=== PATIENT | male | born 1935 | race Caucasian/White ===

== ENCOUNTER 2023-03-01 14:45 | Inpatient (IN) | payer MEDICARE, OTHER ==
[~2023-03-01] VITALS: Ht 182.9 cm; Wt 91.4 kg
[2023-03-01 16:16] LABS: BASOPHILS # (AUTO) 0.05 K/uL (0.00-0.20); BASOPHILS % (AUTO) 0.4 % (0.0-5.0); EOSINOPHILS # (AUTO) 0.02 K/uL (0.00-0.70); EOSINOPHILS % (AUTO) 0.1 % (0.0-8.0); HEMATOCRIT 37.7 % (42-54); IMMATURE GRANULOCYTE ABSOLUTE 0.07 K/uL (0-1); LYMPHOCYTES # (AUTO) 0.8 K/uL (1.0-4.8); LYMPHOCYTES % (AUTO) 6.1 % (21.0-51.0); MEAN CORPUSCULAR HEMOGLOBIN 30.8 pg (27.0-33.0); MEAN CORPUSCULAR HGB CONC 34.7 g/dL (32.0-36.0); MEAN CORPUSCULAR VOLUME 88.7 fL (79-99); MONOCYTES # (AUTO) 0.9 K/uL (0.1-1.0); MONOCYTES % (AUTO) 6.7 % (3.0-13.0); NEUTROPHILS # (AUTO) 11.9 K/uL (1.8-7.7); NEUTROPHILS % (AUTO) 86.2 % (40.0-77.0); PLATELET COUNT (AUTO) 277 K/uL (130-400); RED BLOOD CELL COUNT(AUTO) 4.25 MIL/uL (4.50-6.20); RED CELL DISTRIBUTION WIDTH 12.3 % (11.0-15.5); WHITE BLOOD COUNT (AUTO) 13.8 K/uL (4.8-10.8)
[2023-03-01 16:27] LABS: CREATININE 1.7 mg/dL (0.5-1.5); POTASSIUM 4.6 mmol/L (3.5-5.1)
[2023-03-01 16:31] LABS: ALBUMIN 3.9 g/dL (3.5-5.0); BILIRUBIN,TOTAL 0.6 mg/dL (0.2-1.0); TOTAL PROTEIN, SERUM 7.9 g/dL (6.0-8.3)
[2023-03-01] MEDS ORDERED: 0.9% NACL 500ML IV.SOLN 500 ML IV ONE (17:00)
[2023-03-01] MEDS ORDERED: CEFTRIAXONE 1G VIAL IVPB ONE (18:30)
[2023-03-01] MEDS ORDERED: TAMSULOSIN HCL 0.4 MG CAP.ER.24H PO ONE (20:30)
[2023-03-01] MEDS ORDERED: POTASSIUM CHLORIDE 20MEQ/100ML 100 ML IV PRN (21:30)
[2023-03-01] MEDS: LACTATED RINGERS 1000ML 1,000 ML IV SCH (21:30)
[2023-03-01] MEDS ORDERED: KCL 20 MEQ ERTAB PO PRN (21:30)
[2023-03-01] MEDS ORDERED: MAGNESIUM 2GM PREMIX 50ML 50 ML IV PRN (21:30)
[2023-03-01] MEDS ORDERED: ACETAMINOPHEN 325 MG TAB PO PRN ×2 (21:30)
[2023-03-01] MEDS ORDERED: ONDANSETRON 4MG INJ IV PRN (21:30)
[2023-03-01] MEDS ORDERED: MORPHINE 2 MG SYG IV PRN (21:30)
[2023-03-01] MEDS ORDERED: POTASSIUM CHLORIDE 10% ELIXIR 20 MEQ/15 ML UDCUP PO PRN (21:30)
[2023-03-01] MEDS ORDERED: HYDROMORPHONE 0.5 MG SYG (0.5MG/0.5ML) IV PRN (21:30)
[2023-03-01 21:35] LABS: APPEARANCE,URINE TURBID (CLEAR); BILIRUBIN,URINE NEGATIVE (NEGATIVE); COLOR,URINE BROWN (YELLOW); GLUCOSE, URINE (UA) 150 mg/dL (NEGATIVE); KETONES,URINE 10 mg/dL (NEGATIVE); LEUKOCYTE ESTERASE ,URINE 75 Leu/uL (NEGATIVE); NITRATE,URINE NEGATIVE (NEGATIVE); OCCULT BLOOD,URINE LARGE (NEGATIVE); PH,URINE 5.5 (5.0-8.0); PROTEIN,URINE 100 mg/dL (NEGATIVE); UROBILINOGEN,URINE 0.2 mg/dL (0.2-1.0)
[2023-03-01 21:36] LABS: ADD UA MICROSCOPIC YES
[2023-03-01 21:38] LABS: BACTERIA,URINE RARE /HPF (None Seen); MUCUS,URINE RARE LPF (None Seen); RBC,URINE TNTC /HPF (0-1); SQUAMOUS EPITHELIAL CELL,UR RARE /HPF (0-2); UNCLASSIFIED CRYSTAL 7 /HPF (None Seen); WBC CLUMP FEW /HPF (0-1); YEAST,URINE BUDDING MOD /HPF (None Seen)
[2023-03-01 22:11] LABS: CREATININE,URINE RANDOM 53 mg/dL (30-135); SODIUM,URINE RANDOM 103 mmol/l (40-220)
[2023-03-02] MEDS: CEFTRIAXONE 1G VIAL IVPB SCH (03:00)
[2023-03-02 07:01] LABS: BASOPHILS # (AUTO) 0.04 K/uL (0.00-0.20); BASOPHILS % (AUTO) 0.4 % (0.0-5.0); EOSINOPHILS # (AUTO) 0.09 K/uL (0.00-0.70); EOSINOPHILS % (AUTO) 0.8 % (0.0-8.0); HEMATOCRIT 35.3 % (42-54); IMMATURE GRANULOCYTE ABSOLUTE 0.06 K/uL (0-1); LYMPHOCYTES # (AUTO) 1.1 K/uL (1.0-4.8); LYMPHOCYTES % (AUTO) 9.7 % (21.0-51.0); MEAN CORPUSCULAR HEMOGLOBIN 30.8 pg (27.0-33.0); MEAN CORPUSCULAR HGB CONC 35.1 g/dL (32.0-36.0); MEAN CORPUSCULAR VOLUME 87.8 fL (79-99); MONOCYTES # (AUTO) 1.4 K/uL (0.1-1.0); MONOCYTES % (AUTO) 12.2 % (3.0-13.0); NEUTROPHILS # (AUTO) 8.7 K/uL (1.8-7.7); NEUTROPHILS % (AUTO) 76.4 % (40.0-77.0); PLATELET COUNT (AUTO) 274 K/uL (130-400); RED BLOOD CELL COUNT(AUTO) 4.02 MIL/uL (4.50-6.20); RED CELL DISTRIBUTION WIDTH 12.4 % (11.0-15.5); WHITE BLOOD COUNT (AUTO) 11.4 K/uL (4.8-10.8)
[2023-03-02 07:10] LABS: ALBUMIN 3.4 g/dL (3.5-5.0); CREATININE 1.3 mg/dL (0.5-1.5); PHOSPHORUS 2.9 mg/dL (2.5-4.9)
[2023-03-02 07:11] LABS: BILIRUBIN,TOTAL 0.5 mg/dL (0.2-1.0); MAGNESIUM 1.9 mg/dL (1.80-2.40)
[2023-03-02 07:14] LABS: HEMOGLOBIN A1C 8.1 % (4.0-6.0)
[2023-03-02] MEDS: INSULIN HUMULIN R 100 UNIT/ML 3ML SQ SCH ×4 (07:30→21:06)
[2023-03-02 07:55] LABS: INR < 0.93 (0.85-1.15); PROTHROMBIN TIME 10.4 SEC (9.6-11.6)
[2023-03-02 07:57] LABS: PARTIAL THROMBOPLASTIN TIME 29.1 SEC (26.3-35.5)
[2023-03-02] MEDS: TAMSULOSIN HCL 0.4 MG CAP.ER.24H PO SCH (10:20)
[2023-03-02] MEDS: FAMOTIDINE 20MG VIAL IV SCH (10:20)
[2023-03-02] MEDS: LACTATED RINGERS 1000ML 1,000 ML IV SCH (11:44)
[2023-03-02] MEDS ORDERED: METO100T14 PO (12:02)
[2023-03-02] MEDS ORDERED: ATOR40TA71 PO (12:02)
[2023-03-02] MEDS ORDERED: AMLO-258 PO (12:02)
[2023-03-02 19:05] VITALS: BP 167/59; PULSE 68; RESP 18
[2023-03-02] MEDS ORDERED: BIMA12.5OS OU (22:11)
[2023-03-02] MEDS ORDERED: TIMO1DRO9 OP (22:11)
[2023-03-02 23:15] VITALS: BP 135/73; PULSE 66; RESP 18
[2023-03-03] MEDS: LACTATED RINGERS 1000ML 1,000 ML IV SCH (00:10)
[2023-03-03] MEDS: CEFTRIAXONE 1G VIAL IVPB SCH (02:09)
[2023-03-03 04:30] VITALS: BP 123/58; PULSE 62; RESP 18
[2023-03-03] MEDS: INSULIN HUMULIN R 100 UNIT/ML 3ML SQ SCH ×5 (05:54→21:22)
[2023-03-03 08:00] VITALS: BP 150/76; PULSE 67; RESP 18; O2SAT 97
[2023-03-03 09:05] LABS: BASOPHILS # (AUTO) 0.04 K/uL (0.00-0.20); BASOPHILS % (AUTO) 0.5 % (0.0-5.0); EOSINOPHILS % (AUTO) 2.3 % (0.0-8.0); HEMATOCRIT 35.9 % (42-54); IMMATURE GRANULOCYTE ABSOLUTE 0.02 K/uL (0-1); LYMPHOCYTES # (AUTO) 1.2 K/uL (1.0-4.8); MEAN CORPUSCULAR HEMOGLOBIN 31.4 pg (27.0-33.0); MEAN CORPUSCULAR HGB CONC 35.1 g/dL (32.0-36.0); MEAN CORPUSCULAR VOLUME 89.5 fL (79-99); MONOCYTES # (AUTO) 0.9 K/uL (0.1-1.0); MONOCYTES % (AUTO) 9.9 % (3.0-13.0); NEUTROPHILS # (AUTO) 6.4 K/uL (1.8-7.7); NEUTROPHILS % (AUTO) 73.1 % (40.0-77.0); PLATELET COUNT (AUTO) 252 K/uL (130-400); RED BLOOD CELL COUNT(AUTO) 4.01 MIL/uL (4.50-6.20); RED CELL DISTRIBUTION WIDTH 12.2 % (11.0-15.5); WHITE BLOOD COUNT (AUTO) 8.8 K/uL (4.8-10.8)
[2023-03-03 09:20] LABS: ALBUMIN 3.3 g/dL (3.5-5.0); BILIRUBIN,TOTAL 0.5 mg/dL (0.2-1.0); CREATININE 1.3 mg/dL (0.5-1.5); MAGNESIUM 1.8 mg/dL (1.80-2.40); POTASSIUM 3.8 mmol/L (3.5-5.1)
[2023-03-03] MEDS: TAMSULOSIN HCL 0.4 MG CAP.ER.24H PO SCH (10:52)
[2023-03-03] MEDS: FAMOTIDINE 20MG VIAL IV SCH (10:53)
[2023-03-03] MEDS ORDERED: LACTULOSE 20 GM/30 ML UDCUP PO PRN (11:30)
[2023-03-03 12:00] VITALS: BP 149/74; PULSE 67; RESP 18
[2023-03-03 16:00] VITALS: BP 135/66; PULSE 64; RESP 18
[2023-03-03 19:33] VITALS: BP 130/64; PULSE 66; RESP 20
[2023-03-03 23:32] VITALS: BP 119/74; PULSE 68; RESP 17
[2023-03-04 03:35] VITALS: BP 120/62; PULSE 63; RESP 19
[2023-03-04] MEDS: CEFTRIAXONE 1G VIAL IVPB SCH (04:12)
[2023-03-04] MEDS: INSULIN HUMULIN R 100 UNIT/ML 3ML SQ SCH ×2 (05:34→11:42)
[2023-03-04 08:00] VITALS: BP 144/76; PULSE 69; RESP 18
[2023-03-04] MEDS: TAMSULOSIN HCL 0.4 MG CAP.ER.24H PO SCH (08:27)
[2023-03-04] MEDS: FAMOTIDINE 20MG VIAL IV SCH (08:27)
[2023-03-04 12:00] VITALS: BP 149/66; PULSE 65; RESP 18
[2023-03-04] MEDS ORDERED: METF-444 PO (15:04)
== END 2023-03-04 16:20 | disposition home or self-care (01) | DRG 683 ==
LOC: EDH 14:45 → EDHIP 21:27 → 4BH 03-02 18:34
PROVIDERS: ADMIT Internal Medicine; ATTEND Internal Medicine
DX: N17.9 Acute kidney failure, unspecified (principal); N13.8 Other obstructive and reflux uropathy; N39.0 Urinary tract infection, site not specified; N18.32 Chronic kidney disease, stage 3b; E11.22 Type 2 diabetes mellitus with diabetic chronic kidney disease; I12.9 Hypertensive chronic kidney disease with stage 1 through stage 4 chronic kidney disease, or unspecified chronic kidney disease; R31.0 Gross hematuria; E11.65 Type 2 diabetes mellitus with hyperglycemia; E78.00 Pure hypercholesterolemia, unspecified; N40.1 Benign prostatic hyperplasia with lower urinary tract symptoms; Z85.46 Personal history of malignant neoplasm of prostate; Z85.51 Personal history of malignant neoplasm of bladder; Z92.3 Personal history of irradiation
CPT/HCPCS: 36415; 74176; 76705; 80053; 81001; 82550; 82570; 82948; 83036; 83690; 83735; 83935; 84100; 84300; 85025; 85610; 85730; 86850; 86900; 86901; 87040; 87077; 87088; 87186; 93005; 96365; G0378; J0696; J1815; J3475; J3490

== ENCOUNTER → 2023-08-16 | Outpatient (CLI) | payer OTHER ==
[~2023-08-16] MED LIST: AMLO-258 PO; ATOR40TA71 PO; BIMA12.5OS OU; LEVO750T68 PO; METF-444 PO; METO100T14 PO; METO50TA18 PO; SITA50TA PO; TIMO1DRO9 OP
== END | disposition home or self-care (01) ==
LOC: SHCH 13:23
PROVIDERS: ATTEND Internal Medicine Cardiovascular Disease
DX: I35.8 Other nonrheumatic aortic valve disorders (principal); I51.89 Other ill-defined heart diseases; I20.0 Unstable angina; R06.02 Shortness of breath
CPT/HCPCS: 93306

== ENCOUNTER → 2023-08-20 | Outpatient (CLI) | payer OTHER ==
[2023-08-20] MEDS: REGADENOSON 0.4 MG/5 ML PF SYG IVP ONE (13:56)
== END | disposition home or self-care (01) ==
LOC: SHCH 08:06
PROVIDERS: ATTEND Internal Medicine Cardiovascular Disease
DX: I20.0 Unstable angina (principal); R06.02 Shortness of breath; R06.00 Dyspnea, unspecified
CPT/HCPCS: 78452; 93017; J2785; A9500 ×2; 96374

== ENCOUNTER 2023-08-25 20:31 | Observation (INO) | payer OTHER ==
[~2023-08-25] VITALS: Ht 180.3 cm; Wt 90.0 kg
[~2023-08-25 20:31] MED LIST changes: -LEVO750T68 PO; -METO50TA18 PO; -SITA50TA PO
[2023-08-25 21:10] LABS: BASOPHILS # (AUTO) 0.05 K/uL (0.00-0.20); BASOPHILS % (AUTO) 0.3 % (0.0-5.0); EOSINOPHILS # (AUTO) 0.02 K/uL (0.00-0.70); EOSINOPHILS % (AUTO) 0.1 % (0.0-8.0); HEMATOCRIT 35.7 % (42-54); IMMATURE GRANULOCYTE ABSOLUTE 0.12 K/uL (0-1); LYMPHOCYTES # (AUTO) 0.6 K/uL (1.0-4.8); LYMPHOCYTES % (AUTO) 3.2 % (21.0-51.0); MEAN CORPUSCULAR HGB CONC 34.2 g/dL (32.0-36.0); MEAN CORPUSCULAR VOLUME 90.6 fL (79-99); MONOCYTES # (AUTO) 1.7 K/uL (0.1-1.0); MONOCYTES % (AUTO) 9.7 % (3.0-13.0); NEUTROPHILS # (AUTO) 15.1 K/uL (1.8-7.7); PLATELET COUNT (AUTO) 249 K/uL (130-400); RED BLOOD CELL COUNT(AUTO) 3.94 MIL/uL (4.50-6.20); RED CELL DISTRIBUTION WIDTH 12.6 % (11.0-15.5); WHITE BLOOD COUNT (AUTO) 17.6 K/uL (4.8-10.8)
[2023-08-25 21:18] LABS: RAPID GROUP A STREP negative (NEGATIVE); SARS-CoV-2, RNA, NAAT NEGATIVE SARS CoV-2 (NEGATIVE)
[2023-08-25 21:24] LABS: CREATININE 1.4 mg/dL (0.5-1.3); POTASSIUM 4.4 mmol/L (3.5-5.1)
[2023-08-25 21:27] LABS: INFLUENZA TYPE A Negative For Type A (NEGATIVE); INFLUENZA TYPE B Negative For Type B (NEGATIVE)
[2023-08-25 21:36] LABS: ALBUMIN 3.3 g/dL (3.5-5.0); BILIRUBIN,TOTAL 0.6 mg/dL (0.2-1.0); MAGNESIUM 1.8 mg/dL (1.80-2.40); THYROID STIMULATING HORMONE 1.13 uIU/mL (0.36-3.74)
[2023-08-25 21:51] LABS: APPEARANCE,URINE TURBID (CLEAR); BILIRUBIN,URINE NEGATIVE (NEGATIVE); COLOR,URINE YELLOW (YELLOW); GLUCOSE, URINE (UA) NEGATIVE (NEGATIVE); KETONES,URINE NEGATIVE (NEGATIVE); LEUKOCYTE ESTERASE ,URINE 500 Leu/uL (NEGATIVE); NITRATE,URINE NEGATIVE (NEGATIVE); OCCULT BLOOD,URINE MODERATE (NEGATIVE); PH,URINE 5.5 (5.0-8.0); PROTEIN,URINE 70 mg/dL (NEGATIVE); UROBILINOGEN,URINE 0.2 mg/dL (0.2-1.0)
[2023-08-25 21:53] LABS: ADD UA MICROSCOPIC YES
[2023-08-25 21:56] LABS: MUCUS,URINE RARE LPF (None Seen); NON-SQUAMOUS EPITHELIAL CELL 2 /HPF (0-2); SQUAMOUS EPITHELIAL CELL,UR RARE /HPF (0-2); WBC CLUMP FEW /HPF (0-1); WBC,URINE >100 /HPF (0-1)
[2023-08-25] MEDS: CEFTRIAXONE 2GM VIAL IVPB ONE (23:29)
[2023-08-25] MEDS: 0.9%NACL 1000ML 2,259 ML IV ONE (23:30)
[2023-08-26] MEDS ORDERED: SITA50TA PO (00:21)
[2023-08-26] MEDS ORDERED: METO50TA18 PO (00:21)
[2023-08-26] MEDS ORDERED: ONDANSETRON 4MG INJ IVP PRN (00:30)
[2023-08-26] MEDS ORDERED: ACETAMINOPHEN 650 MG SUPPOSITORY RC PRN (00:30)
[2023-08-26] MEDS ORDERED: HYDROCODONE/ACETAMINOPHEN 5/325 MG TAB PO PRN (00:30)
[2023-08-26] MEDS ORDERED: HYDRALAZINE 20MG/ML VIAL IV PRN (00:30)
[2023-08-26] MEDS ORDERED: LABETALOL 20MG SYG IV PRN (00:30)
[2023-08-26] MEDS: ACETAMINOPHEN 325 MG TAB PO PRN (01:31)
[2023-08-26 02:41] LABS: HEMOGLOBIN A1C 8.7 % (4.0-6.0)
[2023-08-26] MEDS: LACTATED RINGERS 1000ML 1,000 ML IV SCH (03:15)
[2023-08-26 03:29] VITALS: TEMP 99.3
[2023-08-26] MEDS: LACTATED RINGERS 1000ML IV ONE (03:30)
[2023-08-26] MEDS: INSULIN HUMULIN R 100 UNIT/ML 3ML SQ SCH (08:32)
[2023-08-26] MEDS: ENOXAPARIN SODIUM 40 MG/0.4 ML SYRINGE SQ SCH (08:33)
[2023-08-26] MEDS: POLYETHYLENE GLYCOL 3350 17 GM POWD.PACK PO SCH (08:33)
[2023-08-26] MEDS: CEFTRIAXONE 1G VIAL IV SCH (08:33)
[2023-08-26] MEDS: ASCORBIC ACID 500 MG TAB PO SCH (08:33)
[2023-08-26 20:17] VITALS: O2SAT 95
[2023-08-26 21:05] VITALS: BP 147/57; PULSE 75; RESP 20
[2023-08-26 23:18] VITALS: BP 114/48; PULSE 66; RESP 20
[2023-08-27 03:58] VITALS: BP 146/75; PULSE 68; RESP 20
[2023-08-27 05:20] LABS: BASOPHILS # (AUTO) 0.05 K/uL (0.00-0.20); BASOPHILS % (AUTO) 0.5 % (0.0-5.0); EOSINOPHILS # (AUTO) 0.26 K/uL (0.00-0.70); EOSINOPHILS % (AUTO) 2.5 % (0.0-8.0); HEMATOCRIT 31.9 % (42-54); IMMATURE GRANULOCYTE ABSOLUTE 0.06 K/uL (0-1); LYMPHOCYTES # (AUTO) 1.3 K/uL (1.0-4.8); LYMPHOCYTES % (AUTO) 12.8 % (21.0-51.0); MEAN CORPUSCULAR HEMOGLOBIN 31.3 pg (27.0-33.0); MEAN CORPUSCULAR HGB CONC 33.9 g/dL (32.0-36.0); MEAN CORPUSCULAR VOLUME 92.5 fL (79-99); MONOCYTES # (AUTO) 1.4 K/uL (0.1-1.0); MONOCYTES % (AUTO) 13.7 % (3.0-13.0); NEUTROPHILS # (AUTO) 7.2 K/uL (1.8-7.7); NEUTROPHILS % (AUTO) 69.9 % (40.0-77.0); PLATELET COUNT (AUTO) 175 K/uL (130-400); RED BLOOD CELL COUNT(AUTO) 3.45 MIL/uL (4.50-6.20); RED CELL DISTRIBUTION WIDTH 12.5 % (11.0-15.5); WHITE BLOOD COUNT (AUTO) 10.3 K/uL (4.8-10.8)
[2023-08-27 05:27] LABS: INR 0.95 (0.85-1.15); PROTHROMBIN TIME 11.2 SEC (9.6-11.6)
[2023-08-27 05:34] LABS: CREATININE 1.1 mg/dL (0.5-1.3); MAGNESIUM 1.7 mg/dL (1.80-2.40); PHOSPHORUS 2.7 mg/dL (2.5-4.9); POTASSIUM 3.6 mmol/L (3.5-5.1)
[2023-08-27 08:00] VITALS: BP_SYST 133; BP_SYST 147; BP_SYST 154; BP_DIAS 55; BP_DIAS 63; BP_DIAS 66; PULSE 72; RESP 14
[2023-08-27] MEDS ORDERED: LEVO750T68 PO (10:37)
[2023-08-27 12:00] VITALS: BP 148/72; PULSE 71; RESP 16
[2023-08-27] MEDS ORDERED: KCL 20 MEQ ERTAB PO PRN (13:00)
[2023-08-27] MEDS ORDERED: POTASSIUM CHLORIDE 20MEQ/100ML 100 ML IV PRN (13:00)
[2023-08-27] MEDS: MAGNESIUM 2GM PREMIX 50ML 50 ML IV SCH (13:29)
[2023-08-27] MEDS: POTASSIUM CHLORIDE 10% ELIXIR 20 MEQ/15 ML UDCUP PO PRN (13:30)
== END 2023-08-27 16:50 | disposition home or self-care (01) ==
LOC: EDH 20:31 → EDHIP 08-26 00:23 → 4BH 08-26 20:23
PROVIDERS: ADMIT Internal Medicine; ATTEND Internal Medicine
DX: N30.00 Acute cystitis without hematuria (principal); Z20.822 Contact with and (suspected) exposure to COVID-19; N17.9 Acute kidney failure, unspecified; E11.65 Type 2 diabetes mellitus with hyperglycemia; I10 Essential (primary) hypertension; E78.5 Hyperlipidemia, unspecified; H40.9 Unspecified glaucoma; D84.9 Immunodeficiency, unspecified; B96.20 Unspecified Escherichia coli [E. coli] as the cause of diseases classified elsewhere; I45.10 Unspecified right bundle-branch block; E86.0 Dehydration; Z85.51 Personal history of malignant neoplasm of bladder; Z79.84 Long term (current) use of oral hypoglycemic drugs
CPT/HCPCS: 96361 ×3; 96375; 99285; 84443; 82550; 83735 ×2; 84484; 80053; 85025 ×2; 87040 ×2; 87088; 87880; 87804 ×2; 83605 ×2; 81001; 36415 ×3; 87635; 71045; 93005; 96376 ×2; 96372 ×2; 83036; 87077; 87186; 82948 ×6; 96365; 96366; 84100; 80048; 85610; 97161; 97116; 84145; J7030; J0696 ×3; G0378 ×40; J7120; J1650 ×2; J1815 ×2; J3475